=== PATIENT | female | born 1975 | race Caucasian/White ===

== ENCOUNTER 2018-08-06 00:28 | Emergency (ER) | payer SELFPAY ==
[2018-08-06] MEDS ORDERED: Proparacaine 0.5% Opth 15 ML BOT ONE (00:44)
[2018-08-06] MEDS ORDERED: Fluorescein Opthalmic Strip ONE (00:44)
[2018-08-06] MEDS ORDERED: HYDROcodone/Acetaminophen 5/325 mg Tablet ONE (01:39)
== END 2018-08-06 02:01 | disposition home or self-care (01) ==
LOC: ERS 00:28
DX: H10.9 Unspecified conjunctivitis (principal); F17.210 Nicotine dependence, cigarettes, uncomplicated; Z71.6 Tobacco abuse counseling
CPT/HCPCS: 99406

== ENCOUNTER 2018-12-13 03:11 | Emergency (ER) | payer SELFPAY ==
[2018-12-13] MEDS ORDERED: Ketorolac Tromethamine 60 MG/2 ML VIAL ONE (03:50)
--- NOTE | 2018-12-13 08:28 | RAD ---
AP AND OBLIQUE CHEST RIGHT RIBS: History: Right 4th rib pain. FINDINGS: AP and oblique views of the right ribs demonstrate no evidence of right rib fractures, subluxations, or bony lesions. No acute or chronic bony abnormalities seen. IMPRESSION: Unremarkable AP and oblique views right ribs. POS: [facility]
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
== END 2018-12-13 04:55 | disposition home or self-care (01) ==
LOC: ERS 03:11
DX: S22.31XA Fracture of one rib, right side, initial encounter for closed fracture (principal); R09.1 Pleurisy; J43.9 Emphysema, unspecified; F17.210 Nicotine dependence, cigarettes, uncomplicated; Z71.6 Tobacco abuse counseling; V49.60XA Unspecified car occupant injured in collision with unspecified motor vehicles in traffic accident, initial encounter
CPT/HCPCS: 71250; 96372; 99406; J1885

== ENCOUNTER 2019-01-17 16:22 | Emergency (ER) | payer SELFPAY | END 2019-01-17 17:18 | disposition home or self-care (01) | LOC: ERS 16:22 | DX: J02.9 Acute pharyngitis, unspecified (principal); F31.9 Bipolar disorder, unspecified; F17.210 Nicotine dependence, cigarettes, uncomplicated; Z79.899 Other long term (current) drug therapy | CPT/HCPCS: 87081; 87430; 99283 ==

== ENCOUNTER 2019-03-31 16:36 | Emergency (ER) | payer SELFPAY ==
--- NOTE | 2019-03-31 17:55 | RAD ---
2 views of the chest: 03/31/2019 COMPARISON: 11/28/2013 HISTORY: Sore throat, cough, ear pain FINDINGS: Prominent bullous changes are noted in the right lung apex, stable. No pneumothorax or pleu ral fluid. No focal consolidation or alveolar edema. Heart and mediastinal contours appear within normal limits. No acute osseous abnormality. IMPRESSION: Stable appearance of the chest-no acute findings.
== END 2019-03-31 18:38 | disposition home or self-care (01) ==
LOC: ERS 16:36
DX: J20.9 Acute bronchitis, unspecified (principal); J04.0 Acute laryngitis; F31.9 Bipolar disorder, unspecified; F17.210 Nicotine dependence, cigarettes, uncomplicated
CPT/HCPCS: 71046; 87081; 87430

== ENCOUNTER 2019-04-25 18:40 | Emergency (ER) | payer SELFPAY ==
--- NOTE | 2019-04-25 19:46 | RAD ---
PA CHEST AND LEFT RIBS: 04/25/19 Total of four views. INDICATIONS: Left rib pain. Lung singer are clear on PA chest exam. No evidence of left rib fracture identified. IMPRESSION: No acute findings. POS: [facility]
[2019-04-25] MEDS ORDERED: Naproxen 500 MG TAB ONE (19:49)
== END 2019-04-25 20:03 | disposition home or self-care (01) ==
LOC: ERS 18:40
DX: R07.81 Pleurodynia (principal); J43.9 Emphysema, unspecified; F17.210 Nicotine dependence, cigarettes, uncomplicated

== ENCOUNTER 2019-09-15 17:59 | Emergency (ER) | payer SELFPAY ==
[2019-09-15] MEDS ORDERED: HYDROcodone/Acetaminophen 10/325 mg Tablet ONE (19:01)
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
[2019-09-15] MEDS ORDERED: Ibuprofen 200 MG TAB ONE (20:36)
== END 2019-09-15 20:40 | disposition home or self-care (01) ==
LOC: ERS 17:59
DX: S02.40FA Zygomatic fracture, left side, initial encounter for closed fracture (principal); S02.40DA Maxillary fracture, left side, initial encounter for closed fracture; J44.9 Chronic obstructive pulmonary disease, unspecified; F17.210 Nicotine dependence, cigarettes, uncomplicated; Z79.899 Other long term (current) drug therapy; Y04.0XXA Assault by unarmed brawl or fight, initial encounter
CPT/HCPCS: 70450; 70486; 72125

== ENCOUNTER 2020-09-10 10:18 | Emergency (ER) | payer SELFPAY ==
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
[2020-09-10] MEDS ORDERED: HYDROcodone/Acetaminophen 10/325 mg Tablet ONE (12:46)
== END 2020-09-10 13:00 | disposition home or self-care (01) ==
LOC: ERS 10:18
DX: S61.011A Laceration without foreign body of right thumb without damage to nail, initial encounter (principal); J43.9 Emphysema, unspecified; F31.9 Bipolar disorder, unspecified; F17.210 Nicotine dependence, cigarettes, uncomplicated; Z79.899 Other long term (current) drug therapy; W26.8XXA Contact with other sharp object(s), not elsewhere classified, initial encounter

== ENCOUNTER 2023-07-11 15:27 | Emergency (ER) | payer SELFPAY ==
[2023-07-11] MEDS ORDERED: CEFAZOLIN 1 GM VIAL ONE (15:54)
[2023-07-11] MEDS ORDERED: Boostrix 0.5 ML (Tdap) VIAL (>/=7 yrs of age) ONE (15:54)
[2023-07-11] MEDS ORDERED: Lidocaine 1% PF 5 ML VIAL ONE (16:12)
[2023-07-11] MEDS ORDERED: Morphine 4 MG/ML VIAL ONE (16:42)
== END 2023-07-11 19:23 | disposition short-term general hospital (02) ==
LOC: ERS 15:27
DX: S68.621A Partial traumatic transphalangeal amputation of left index finger, initial encounter (principal); S68.623A Partial traumatic transphalangeal amputation of left middle finger, initial encounter; J44.9 Chronic obstructive pulmonary disease, unspecified; F17.210 Nicotine dependence, cigarettes, uncomplicated; W31.2XXA Contact with powered woodworking and forming machines, initial encounter; Z23 Encounter for immunization
CPT/HCPCS: 64450; 90471; 90715; 96365; 96375; G0390; J0690; J2270